=== PATIENT | female | born 1945 | race Caucasian/White ===

== ENCOUNTER 2018-06-18 10:07 | Outpatient (CLI) | payer OTHER | END 2018-06-18 10:08 | disposition home or self-care (01) | LOC: C.PAT 10:07 | DX: K80.20 Calculus of gallbladder without cholecystitis without obstruction (principal) ==

== ENCOUNTER 2018-07-01 08:34 | Day surgery (SDC) | payer OTHER ==
[2018-07-01 08:55] VITALS: BMI 25.4
[2018-07-01] MEDS ORDERED: Midazolam 2 MG/2 ML VIAL ONE (09:19)
[2018-07-01] MEDS ORDERED: Propofol 10 mg/ml Inj (20 ML) ONE (09:19)
[2018-07-01] MEDS ORDERED: ceFAZolin 1 gm in NS 1 GM/100 ML BAG IVPB ONE (09:29)
[2018-07-01] MEDS ORDERED: Phenylephrine 10 mg/ml Inj ONE (10:13)
[2018-07-01] MEDS ORDERED: Neostigmine 1:1000 (1 mg/ml) Inj ONE (10:39)
[2018-07-01] MEDS ORDERED: Morphine 4 MG/ML VIAL ONE (10:50)
[2018-07-01] MEDS ORDERED: HYDROmorphone 0.5 mg/0.5 ml ISec IVP PRN (11:03)
--- NOTE | 2018-07-01 11:03 | PCM.SURG1 ---
Surgeon's Initial Post Op Note - Surgeon's Notes Surgeon: Dr. Rodríguez [employer] Laboratory Technician: Dr. Calabrese PGY3, Dr. Salas PGY4 Type of Anesthesia: General Endo Pre-Operative Diagnosis: cholelithiasis Operative Findings: see operative report Post-Operative Diagnosis: see operative report Operation Performed: laparoscopic cholecystectomy Specimen/Specimens Removed: gallbladder Estimated Blood Loss: EBL {In ML}: 5 Blood Products Given: N/A Drains Used: No Drains Post-Op Condition: Good Date of Surgery/Procedure: 07/01/18 Time of Surgery/Procedure: 11:02
[2018-07-01] MEDS ORDERED: Lactated Ringer's 500 ML IV ONE (13:00)
[2018-07-01 13:11] VITALS: TEMP 97.3
[2018-07-01 13:23] VITALS: RESP 18
[2018-07-01 15:10] VITALS: BP 121/55; PULSE 62; O2SAT 98
--- NOTE | 2018-07-02 05:08 | OP ---
PROCEDURE DATE: 07/01/2018 PROCEDURE: Laparoscopic cholecystectomy. PREOPERATIVE DIAGNOSIS: Cholelithiasis. POSTOPERATIVE DIAGNOSIS: Cholelithiasis. SURGEON: Magda Rodríguez MD ASSISTANTS: Sae Calabrese DO, PGY-3 and Keyla Salas DO, PGY-4 ANESTHETIC USED: General anesthesia. INDICATIONS: The patient, Tracee, is a very pleasant 73-year-old female with a history of symptomatic cholelithiasis. Today, she presents for a laparoscopic cholecystectomy. DESCRIPTION OF OPERATION: The patient was brought to the operating room where surgical safety checklist was performed. Preoperatively, 1 g of IV Ancef was administered. General anesthesia was induced. In supine position, the abdomen was prepped and draped in a sterile fashion. An infraumbilical midline incision was made and carried down to the fascia, which was divided exposing the peritoneal cavity. A closed technique was used to enter the peritoneal cavity with a Veress needle and used to establish a pneumoperitoneum. Afterwards, a 11-mm port bladed trocar was inserted to the infraumbilical region. Then, a laparoscope was inserted into the abdomen under direct vision. Subsequently an 11-mm epigastric port and two 5-mm ports along the right costal margin were placed. The peritoneal cavity was inspected, and no abnormalities were found. The patient was placed in reverse Trendelenburg position with the right side up. Omental attachments to the gallbladder were swept away with an atraumatic grasper could be used to retract the fundus of the gallbladder superiorly over the dome of the liver. Filmy adhesions between the gallbladder and omentum were also lysed bluntly. Afterwards, the infundibulum was identified and subsequently retracted laterally towards the right lower quadrant using another grasper. This maneuver exposed Calot's triangle very nicely. The peritoneum overlying the gallbladder infundibulum was then incised with electrocautery anteriorly. Then, the posterior peritoneum was dissected. The triangle was dissected to expose the cystic duct, the cystic artery as well as the lower third of the cystic plate. Once these structures were carefully identified, the cystic duct was divided first. The cystic artery had both anterior and posterior branches which ended up being identified, doubly clipped proximally, singly clipped distally and both were divided carefully using endoscissors. The electrocautery was then used to separate the peritoneal attachments in the gallbladder and its liver bed. The gallbladder fossa and cystic artery were inspected to ensure no bleeding. Hemostasis was achieved with electrocautery. There was some leakage of bile from the gallbladder; however, there was no leakage of bile noted from the cystic duct stump. The gallbladder once freed was placed in an endoscopic retrieval bag and was easily removed from the abdomen through the infraumbilical port. The specimen was sent to Pathology. Afterwards, the liver bed and fossa was thoroughly irrigated and suctioned. The liver bed was inspected. There was no active bleeding. All ports were removed from direct visualization. No active bleeding noted. The fascia at the infraumbilical port was approximated using 0 Vicryl sutures in an interrupted fashion. All incisions were closed using a 4-0 Monocryl in an interrupted subcuticular fashion. The operative field was cleaned and dried. Steri-Strips were applied along all skin incisions. There were no intraoperative complications, and estimated blood loss was 5 mL. All instruments and sponge counts were correct. A surgical debriefing was performed. The patient was extubated and transferred to PACU in stable condition. Sae Calabrese DO Magda Rodríguez MD [facility]
== END 2018-07-01 14:53 | disposition home or self-care (01) ==
LOC: C.SDS 08:34
PROVIDERS: ATTEND Specialist
DX: K80.20 Calculus of gallbladder without cholecystitis without obstruction (principal); K80.10 Calculus of gallbladder with chronic cholecystitis without obstruction
CPT/HCPCS: 47562; 88304; J0690; J1170; J1885; J2250; J2270; J2370; J2405; J2704; J2710; J3010; J7040; J7120